=== PATIENT | female | born 2000 | race Caucasian/White ===

== ENCOUNTER 2022-06-03 17:39 | Emergency (ER) | payer OTHER ==
[~2022-06-03] VITALS: Ht 162.6 cm; Wt 81.6 kg
[2022-06-03 18:01] VITALS: BP_SYST 148
--- NOTE | 2022-06-03 19:59 | NUR ---
PT HERE C/O LOW BACK PAIN RADIATES TO RT LEG ON AND OFF X1 MONTH. PT DENIES FALL/TRAUMA, DENIES DYSURIA PMH:SCOLIOSIS PT AAOX4, NOT IN ANY DISTRESS AT THIE TIME, PENDING MD SOUZA
--- NOTE | 2022-06-03 22:10 | NUR ---
MD Chan at bedside examining patient. Addendum: 06/03/22 at 2339 by [email or web address] MD Mims
[2022-06-03] MEDS ORDERED: DIAZEPAM 5 MG TABLET (VALIUM) PO ONE (22:30)
[2022-06-03] MEDS ORDERED: KETOROLAC TROMETHAMINE 30 MG VIAL IM ONE (22:30)
[2022-06-03] MEDS ORDERED: NAPR-1172 PO (23:29)
--- NOTE | 2022-06-03 23:40 | NUR ---
Patient given written and verbal discharge instructions and verbalizes understanding. ER MD Mims discussed with patient the results and treatment provided. Patient in stable condition. ID arm band removed. Rx of Naproxen sent to pharmacy of choice. Patient educated on pain management and to follow up with PMD. Pain Scale 0/10. Opportunity for questions provided and answered. Medication side effect fact sheet provided.
[2022-06-03 23:41] VITALS: BP_SYST 123
== END 2022-06-03 23:38 | disposition home or self-care (01) ==
LOC: SED 17:39
DX: M54.31 Sciatica, right side (principal); M54.50 Low back pain, unspecified; M79.661 Pain in right lower leg; Z79.899 Other long term (current) drug therapy
CPT/HCPCS: 99283; 81002; 81025; 96372; J1885